=== PATIENT | female | born 1935 | race Caucasian/White ===

== ENCOUNTER → 2017-12-17 | Outpatient (CLI) | payer MEDICARE, OTHER | END | disposition home or self-care (01) | LOC: NM 08:54 | DX: R07.9 Chest pain, unspecified (principal); Z79.01 Long term (current) use of anticoagulants | CPT/HCPCS: 78452; 93017; 96374; 96376; A9500 ==

== ENCOUNTER → 2021-11-07 | Outpatient (CLI) | payer MEDICARE, OTHER ==
[2016-11-28 10:58] VITALS: BP 118/59
[~2021-11-07] MED LIST: METO-239 PO; METO50TA29 PO; RISE35TA3 PO
--- NOTE | 2021-11-07 18:48 | RAD ---
MR#: [id number] Date of Study: 11/07/2021 Ordering Physician: KRZYSZTOF PLUMMER, Referring Physician: ANUPAMA NUNO Tech: JULISA Alexander, ARRT (R) (N) APPROVED REPORT Test Type: Exercise Stress Nurse/Tech: LOUIS TYLER Test Indications: CHEST PAIN, SHORE Cardiac History: HTN, ABLATION- SEE EMR Medications: SEE EMR Medical History: SEE EMR Resting ECG: SR Resting Heart Rate: 74 bpm Resting Blood Pressure: 138/65mmHg Pretest Chest Pain: No chest pain Nurse/Tech Notes S1,S2, LUNGS CTA, DENIES CH OR SOA AT THIS TIME. VSS. Consent: The procedure was explained to the patient in lay terms. Informed consent was witnessed. Dyllan eout was entered into [facility]. History and Stress Test performed by RT Evita (R) (N) Pharm. Details Pharmacologic stress testing was performed using 0.4mg per 5ml of regadenoson given intravenously ove r 7-10 seconds. Stress Symptoms PT TOLERATED TREADMILL TEST WELL, TARGET HEART RATE REACHED. VSS- WNL. PT WAS "WINDED", DENIED CHEST PAIN. POST EXERCISE Reason for Termination: Reached target heart rate Target HR: 114 Max HR: 185 bpm 162% of Maximum Predicted HR: 114 bpm Exercise duration: 2:22 min:sec, 1 Stage Exercise capacity: 4.6METs Max Blood Pressure: 180/79mmHg Blood Pressure response to exercise: Normal blood pressure response during stress. Heart Rate response to exercise: WNL Chest Pain: No. Arrhythmia: . PAC'S AND PVC'S/COUPLET NOTED ON EKG- RETURNED TO BASELINE AT REST INTERPRETATION Stress EKG Conclusion: Mildly abnormal EKG with [address] segment depressions. Nondiagnostic for any ischemia. Imaging Protocol IMAGE PROTOCOL: Rest Tc-99m/stress Tc-99m 1 day Rest: Stress: Viability: Radiopharm.Tc99m [id number] Sestamibi Dose10.9mCi 30.2mCi Img Date 11/07/2021 11/07/2021 Inj-Img Meof29lmz. 60min. Rest Admin Site:IV - Right ForearmAdministrator:JULISA Alexander, ARRT (R)(N) Stress Admin Site: IV - Right ForearmAdministrator: Maryan Raman, RT (R)(N) STRESS DATA End Diast. Vol.25.0mlAv. Heart Rate99.0bpm End Syst. Vol.3.0mlCO Index BSA0.0L/min Myocardial Mass58.0gEject. Trkedfzr63.0% Stress Rates Pk. Fill Rate8.46EDV/secLVtime Pk. Fill 88.15msec Pk. Empty Rate4.40ESV/secLVtime Pk. Eject69.08msec 11/13 Pk. Fill2.80EDV/sec Stress Scores Regional WT2.00Summed WT15.00 Regional WM0.00Summed WM3.00 LV Perfusion Normal perfusion at stress. Significant artifact on rest images. Wall Motion Normal wall motion with an EF of greater than 70%. LV Perf. Quant 17 Seg. SSS0.00 17 Seg. SRS14.00 17 Seg. SDS0.00 Stress Defect Extent (% LAD)0.00Rest Defect Extent (% LAD)31.90Rev. Defect Extent (% LAD)0.00 Stress Defect Extent (% LCX) 0.00Rest Defect Extent (% LCX)40.00Rev. Defect Extent (% LCX)0.00 Stress Defect Extent (% RCA)0.00Rest Defect Extent (% RCA)16.70Rev. Defect Extent (% RCA)0.00 Stress Defect Extent (% JAYSON)0.00Rest Defect Extent (% JAYSON)30.90Rev. Defect Extent (% JAYSON)0.00 Other Information Quality:Poor Risk Assessment: Low Risk Conclusion 1. Mildly abnormal EKG with [address] segment depression in the inferolateral leads with exer cise. Poor exercise capacity 2. Normal perfusion and stress 3. Resting images are nondiagnostic due to significant artifact 4. Normal EF greater than 70% 5. Low risk study overall. Signed by : Reza España, Electronically Approved : 11/07/2021 18:48:06
== END ==
LOC: NM 09:09
PROVIDERS: ATTEND Internal Medicine Cardiovascular Disease
DX: R94.31 Abnormal electrocardiogram [ECG] [EKG] (principal); R07.89 Other chest pain; R06.09 Other forms of dyspnea
CPT/HCPCS: 78452; 93017; A9500